=== PATIENT | male | born 1980 | race Two or more races ===

== ENCOUNTER 2016-09-16 15:16 | Emergency (ER) | payer SELFPAY ==
[~2016-09-16] VITALS: Ht 165.1 cm; Wt 93.0 kg
[2016-09-16 15:20] VITALS: BP 124/82
== END 2016-09-16 17:44 | disposition home or self-care (01) ==
LOC: ER 15:16
DX: M25.531 Pain in right wrist (principal)
CPT/HCPCS: 73110; A4606; Z7610

== ENCOUNTER 2018-09-20 21:20 | Emergency (ER) | payer SELFPAY ==
[~2018-09-20] VITALS: Ht 165.1 cm; Wt 95.3 kg
[2018-09-20 21:36] VITALS: BP 137/97
--- NOTE | 2018-09-20 22:01 | NUR ---
Patient discharged to home in stable condition. Written and verbal after care instructions given. Patient verbalizes understanding of instruction.
== END 2018-09-20 22:02 | disposition home or self-care (01) ==
LOC: ER 21:22
DX: R21 Rash and other nonspecific skin eruption (principal)
CPT/HCPCS: Z7502